=== PATIENT | male | born 1940 | race Caucasian/White ===

== ENCOUNTER 2021-03-18 06:56 | Day surgery (SDC) | payer MEDICARE ==
[2021-03-16 11:17] VITALS: BMI 31.2
[~2021-03-18 06:56] MED LIST: CLINDAMYCIN 600 MG in DEXTROSE 5% IN WATER 50 ML IVPB PRN; DEXAMETHASONE SOD PHOSPHATE 4 MG/ML 1 ML VIAL IV ONE; FAMOTIDINE 20 MG/2 ML VIAL IV PRN; LACTATED RINGERS 1,000 ML IV SCH; ONDANSETRON 4 MG/2 ML VIAL IVP ONE; ONDANSETRON 4 MG/2 ML VIAL IVP PRN; fentaNYL (PF) 50 MCG/ML 2 ML AMP IV PRN
[2021-03-18 08:08] VITALS: TEMP 97.3
[2021-03-18] MEDS ORDERED: LIDOCAINE 1% (10MG/ML) FOR IV START INTRADERMA ONE (08:15)
[2021-03-18 08:29] LABS: Glucose,Whole Blood 237 mg/dL (75-99)
[2021-03-18] MEDS ORDERED: fentaNYL (PF) 50 MCG/ML 2 ML AMP ONE (10:00)
[2021-03-18] MEDS ORDERED: HYDROmorphone (PF) 1 MG/ML ONE (10:00)
[2021-03-18] MEDS ORDERED: GLYCOPYRROLATE 0.2 MG/ML 2 ML VIAL ONE (10:00)
[2021-03-18] MEDS ORDERED: NEOSTIGMINE 1 MG/ML 10 ML VIAL ONE (10:00)
[2021-03-18] MEDS ORDERED: PHENYLEPHRINE-0.9% NACL SYG 1,000 MCG/10 ML SYRINGE ONE (10:00)
[2021-03-18] MEDS ORDERED: LIDOCAINE 1% INJ 10MG/ML (20 ML MDV) ONE (10:00)
[2021-03-18] MEDS ORDERED: ROCURONIUM 10 MG/ML (5 ML VIAL) IV ONE (10:00)
[2021-03-18] MEDS ORDERED: LIDOCAINE 1%-EPI 1:100,000 20 ML VIAL SQ ONE ×2 (10:29)
[2021-03-18] MEDS ORDERED: BACITRACIN ZINC 500 UNIT/GM OINT 28.4 GM TUBE TOPICAL ONE (11:53)
--- NOTE | 2021-03-18 12:23 | P.OP ---
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 Postoperative Diagnosis: Same Procedure(s) Performed: Wide excision of a right neck mass malignant with involvement of greater auricular nerve, parotid, right earlobe, etc. with reconstruction utilizing a full-thickness skin graft Anesthesia: ZAK Surgeon: Yovani Salgado Estimated Blood Loss (ml): 50 Pathology: other (Right neck mass) Condition: stable Disposition: PACU Indications for Procedure: Pt has a massive right neck, earlobe, carotid exophytic fungating mass. This been present for many years. He was asked to have this removed when it was smaller but he refused. He is requesting surgical removal. All risks, benefits, and alternative therapies were discussed. Consent was obtained and all questions were answered. Operative Findings: Deeply infiltrative right neck malignancy involving the parotid right ear and greater auricular nerve Description of Procedure: This patient was taken to the operative room and placed in the supine position. A general inhalation anesthetic was administered the patient by mask and subsequently intubated by the department of anesthesia with a functioning IV line in place. The patient was monitored throughout the entire case by the department of anesthesia. The right neck was sterilely prepped and draped in usual fashion and anesthetized with lidocaine 1% with epinephrine 1 100,010 minutes were allowed wait for full vasoconstrictive effects to take place. At this time this neck mass was excised with appropriate margins measuring 12 x 12 cm. Dissection was carried down to the parotid masseteric fascia and this cancer went through the parotid masseteric fascia involving the parotid gland. This was close to the facial nerve. We dissected this tumor off the facial nerve and the greater auricular nerve inferiorly was involved in the nerve had to be sacrificed. The earlobe was also involved on the right sided part of the earlobe was also removed. After all visible tumor was removed and sent for pathology we harvested the appropriate amount of skin from the right lower abdomen and closed the donor site with rapid Vicryl and a 2-0 PDS. We took the skin defatted the skin and cut the skin and placed as an overlay graft. A large bolster dressing was applied and the patient tolerated this well. Follow-up will be in the office in 1 week and the patient is to contact me if any problems should arise. We are awaiting the results of the pathology report and the family was told that post surgical radiation therapy may be needed.
[2021-03-18 13:03] LABS: Glucose,Whole Blood 199 mg/dL (75-99)
[2021-03-18 13:45] VITALS: BP 172/88; PULSE 82; RESP 18
== END 2021-03-18 14:45 | disposition home or self-care (01) ==
LOC: OR 06:56
PROVIDERS: ATTEND Otolaryngology
DX: C44.41 Basal cell carcinoma of skin of scalp and neck (principal); R22.1 Localized swelling, mass and lump, neck; E11.9 Type 2 diabetes mellitus without complications; F41.9 Anxiety disorder, unspecified; K21.9 Gastro-esophageal reflux disease without esophagitis; G20 Parkinson's disease; N18.9 Chronic kidney disease, unspecified
CPT/HCPCS: 11420; 88305; J1100; J2710; J2405; J2001; J3010; J1170; J2370

== ENCOUNTER 2021-05-06 10:02 | Day surgery (SDC) | payer MEDICARE ==
[2021-05-04 14:22] VITALS: BMI 31.2
[~2021-05-06 10:02] MED LIST changes: -DEXAMETHASONE SOD PHOSPHATE 4 MG/ML 1 ML VIAL IV ONE; +DEXAMETHASONE SOD PHOSPHATE 4 MG/ML 1 ML VIAL IV PRN; -LACTATED RINGERS 1,000 ML IV SCH; -ONDANSETRON 4 MG/2 ML VIAL IVP ONE; -fentaNYL (PF) 50 MCG/ML 2 ML AMP IV PRN
[2021-05-06] MEDS ORDERED: LIDOCAINE 1% (10MG/ML) FOR IV START INTRADERMA PRN (10:15)
[2021-05-06] MEDS ORDERED: HYDROmorphone 0.5 MG/0.5 ML SYRINGE IVP PRN (10:15)
[2021-05-06] MEDS ORDERED: ONDANSETRON 4 MG/2 ML VIAL IVP ONE (10:15)
[2021-05-06] MEDS ORDERED: LACTATED RINGERS 1,000 ML IV SCH (10:15)
[2021-05-06] MEDS ORDERED: DEXAMETHASONE SOD PHOSPHATE 4 MG/ML 1 ML VIAL IV ONE (10:15)
[2021-05-06] MEDS ORDERED: MIDAZOLAM 2 MG/2 ML VIAL IV PRN (10:15)
[2021-05-06 10:43] LABS: Glucose,Whole Blood 144 mg/dL (75-99)
[2021-05-06] MEDS ORDERED: LIDOCAINE 1% INJ 10MG/ML (20 ML MDV) ONE (12:57)
[2021-05-06] MEDS ORDERED: PHENYLEPHRINE-0.9% NACL SYG 1,000 MCG/10 ML SYRINGE ONE (12:57)
[2021-05-06] MEDS ORDERED: fentaNYL (PF) 50 MCG/ML 2 ML AMP ONE (12:57)
[2021-05-06] MEDS ORDERED: SUCCINYLCHOLINE CHLORIDE 100 MG/5 ML SYR IV ONE (12:57)
[2021-05-06] MEDS ORDERED: ePHEDrine SULFATE/0.9% NACL/PF 50 MG/5 ML SYRINGE IV ONE (12:57)
[2021-05-06] MEDS ORDERED: PROPOFOL 10 MG/ML 20 ML VIAL IV ONE (12:57)
[2021-05-06] MEDS ORDERED: LIDOCAINE 1%-EPI 1:100,000 20 ML VIAL SQ ONE ×2 (13:33)
[2021-05-06] MEDS ORDERED: BUPIVACAINE (PF) 0.5% 30 ML VIAL SQ ONE ×2 (13:33)
[2021-05-06] MEDS ORDERED: BACITRACIN ZINC 500 UNIT/GM OINT 28.4 GM TUBE TOPICAL ONE ×2 (13:47)
--- NOTE | 2021-05-06 15:50 | P.OP ---
Date of Procedure: 05/06/21 Preoperative Diagnosis: 18 x 18 cm right neck malignancy 9 x 4 cm left posterior neck lesion Postoperative Diagnosis: Same Procedure(s) Performed: Excision of a 18 x 18 cm right neck malignancy with reconstruction utilizing a full-thickness skin graft donor site left abdomen. Excision of a 9 x 4 cm left posterior neck neoplasm with reconstruction utilizing a bilateral advancement flap closure with a secondary defect measuring 18 x 8 cm Anesthesia: GETA Surgeon: Yovani Salgado Estimated Blood Loss (ml): 20 Pathology: other (Right neck and left posterior neck lesions) Condition: stable Disposition: PACU Indications for Procedure: This patient had a very large infiltrative skin cancer of the right neck just below the earlobe. This was excised previously and the margins came back close along the deep margin and a wider resection was recommended. All risks, benefi ts, and alternative therapies were discussed in detail. Risks of bleeding, infection, facial nerve injury, permanent numbness etc. etc. were explained including risks of recurrence etc. patient understands the risk and wishes to proceed forward. In addition he has a lesion behind the left neck and a wider resection is also recommended. He was also explained the risks and a consent was obtained. Operative Findings: Patient underwent a wider resection of the right neck and left posterior neck and we utilized reconstruction techniques for both. Description of Procedure: This patient was taken to the operative room and placed in the supine position. A general inhalation anesthetic was administered the patient by mask and subsequently intubated with a LMA and the patient was monitored throughout the entire case by the department of anesthesia. The neck posteriorly and right side were sterilely prepped and draped in usual fashion along with a left lower abdomen. We first paid attention to the left posterior neck were a friable suspicious lesion was identified which measured 9 x 4 cm. We excised this with a 15 blade Buffalo plastic scissors and a Brown-Adson forceps and we did extensive undermining all directions. We raised superior and inferiorly based pedicle flaps and did extensive undermining we then rotated the flaps into position removing burrows triangles and close the deep dermal layers with use of 3-0 PDS and the skin was closed with a 50 rapid Vicryl in a running nonlocking fashion. The secondary defect measured 18 x 8 cm the primary defect measured 9 x 4 cm. Attention was then paid to the right neck which was also anesthetized with lidocaine and epinephrine an incision was made surrounding this area and this lesion was removed along with the old skin graft the was becoming on viable. We to the deeper layer because of the pathology report indicating a deeper resection was needed. Bleeding was controlled with pressure and we harvested skin from the left lower abdomen and close that in the usual fashion. We defatted the skin cut to size and placed it as an overlay graft on the right neck. A bolster dressing was applied in the usual fashion with multiple 50 rapid Vicryl's. Excellent results were obtained. The patient tolerated this well and follow-up will be in the office in 1 week. The patient is to contact me if any problems should arise in the interim.
[2021-05-06 15:58] VITALS: RESP 16; TEMP 97.8
[2021-05-06] MEDS: LABETALOL 5 MG/ML VIAL MDV IVP ONE ×4 (16:12→16:55)
[2021-05-06] MEDS ORDERED: LACTATED RINGERS 1,000 ML IV ONE (16:56)
[2021-05-06 18:48] VITALS: BP 146/83; PULSE 72
== END 2021-05-06 18:48 | disposition home or self-care (01) ==
LOC: OR 10:02
PROVIDERS: ATTEND Otolaryngology
DX: C44.40 Unspecified malignant neoplasm of skin of scalp and neck (principal); I49.9 Cardiac arrhythmia, unspecified; I10 Essential (primary) hypertension; E78.5 Hyperlipidemia, unspecified; E11.9 Type 2 diabetes mellitus without complications; K21.9 Gastro-esophageal reflux disease without esophagitis; Z79.899 Other long term (current) drug therapy
CPT/HCPCS: 14301; 14302; 15002; 15004; J1100; J2405; J2001; J2370; J0330; J2704

== ENCOUNTER 2021-08-21 14:12 | Emergency (ER) | payer MEDICARE ==
[2021-08-21 14:29] VITALS: RESP 18; TEMP 97.4
[2021-08-21 15:03] LABS: Albumin 3.1 g/dL (3.5-5.0); Calcium 7.8 mg/dL (8.4-10.2); Potassium 3.6 mmol/L (3.5-5.1); Total Bilirubin 0.6 mg/dL (0.2-1.3); Total Protein 6.5 g/dL (6.3-8.2)
[2021-08-21 15:06] LABS: Basophils % (A) 0 %; Eosinophils % (A) 0 %; HCT 35.1 % (39.0-53.0); HGB 11.1 gm/dL (13.0-17.5); Hypochromasia Slight; Lymphocytes # (A) 0.4 k/uL (1.0-4.8); Lymphocytes % (A) 13 %; MCH 27.9 pg (25.0-35.0); MCHC 31.7 g/dL (31.0-37.0); MCV 87.9 fL (80.0-100.0); Mean Platelet Volume 8.3; Monocytes # (A) 0.3 k/uL (0-1.0); Monocytes % (A) 8 %; Neutrophils # (A) 2.6 k/uL (1.3-7.7); Neutrophils % (A) 76 %; Platelet Count 187 k/uL (150-450); RDW 14.3 % (11.5-15.5); WBC 3.4 k/uL (3.8-10.6)
[2021-08-21] MEDS ORDERED: DEXTROSE 50% SYRINGE 50 ML IVP STA (15:09)
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
[2021-08-21 15:19] LABS: Glucose,Whole Blood 139 mg/dL (75-99)
[2021-08-21 15:28] LABS: Glucose,Whole Blood 100 mg/dL (75-99)
--- NOTE | 2021-08-21 16:18 | CT ---
EXAMINATION TYPE: CT brain wo con DATE OF EXAM: 08/21/2021 COMPARISON: None HISTORY: ams, weakness TECHNIQUE: CT scan of the head performed without contrast CT DLP: 1204.4 mGycm Automated exposure control for dose reduction was used. FINDINGS: Mildly degraded study due to artifact. No acute intracranial hemorrhage, midline shift or mass effect. There is prominence of the CSF spaces and ventricles. Mild patchy low-attenuation the deep white matter periventricular region. Scattered focal areas of low attenuation in the bilateral basal ganglia posterior limb of the right i nternal capsule. Acute orbital, osseous or soft tissue abnormalities seen. Paranasal sinuses and mastoid air cells are within normal limits. Atherosclerotic calcifications in the bilateral internal carotid arteries. IMPRESSION: 1. NO ACUTE INTRACRANIAL HEMORRHAGE, MIDLINE SHIFT OR MASS EFFECT. 2. FINDINGS OF BRAIN VOLUME LOSS AND CHRONIC MICROVASCULAR ISCHEMIC CHANGES.
[2021-08-21 16:24] LABS: Glucose,Whole Blood 86 mg/dL (75-99)
[2021-08-21 16:28] VITALS: BP 133/87; PULSE 62
--- NOTE | 2021-08-21 16:41 | XR ---
EXAMINATION TYPE: XR foot limited LT DATE OF EXAM: 08/21/2021 COMPARISON: NONE HISTORY: 80 years Male. STUDY INDICATION GIVEN: cellulitis . TECHNIQUE: AP and lateral radiographs of the foot IMPRESSION: There is generalized advanced osteopenia which limits evaluation for nondisplaced fracture and osteom yelitis. There is diffuse soft tissue swelling involving the distal lower extremity and the foot. There is a triangular-shaped osseous fragment at the base of the fifth tarsal, correlation with point tenderness recommended for acute fracture. There are osteoarthritic changes of the foot. No definite erosive or aggressive lesions are appreciated though early osteomyelitis is difficult to see on radiograph, clinical correlation is recommended. The need for an MRI to evaluate for osteomyel itis should be determined on clinical basis. There is a 2.0 cm oval-shaped soft tissue attenuation in the distal aspect of the posterior leg, this is located within the region of the Achilles tendon. Correlation with ultrasound or other imaging mo dality may be beneficial if clinically indicated. Peripheral vascular disease changes are noted.
--- NOTE | 2021-08-21 16:45 | XR ---
EXAMINATION TYPE: XR tibia fibula LT DATE OF EXAM: 08/21/2021 COMPARISON: NONE HISTORY: 80 years Male. STUDY INDICATION GIVEN: cellulitis . TECHNIQUE: Frontal and lateral radiographs of the left tibia and fibula IMPRESSION: There is generalized advanced osteopenia which limits evaluation for acute osteomyelitis and nondispl aced fracture. No acutely displaced fractures seen. There is a heterogeneous appearance of the bone marrow in the mid and distal tibia and mid and distal fibula which may be related to osteopenia though other infiltrative bone process cannot excluded. Co rrelation with lower extremity MRI may be beneficial. There is diffuse soft tissue swelling in the leg and included portion of the foot. 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 A cortical step-off is seen in the proximal lateral tibia correlation with history and point tenderne ss recommended for evaluation of acute fracture. Soft tissue density in the posterior aspect of the distal leg is again seen measuring 2.2 cm.
[2021-08-21 17:07] LABS: Glucose,Whole Blood 97 mg/dL (75-99)
== END 2021-08-21 19:15 | disposition home or self-care (01) ==
LOC: EC 14:12
DX: E11.649 Type 2 diabetes mellitus with hypoglycemia without coma (principal); I48.91 Unspecified atrial fibrillation; K21.9 Gastro-esophageal reflux disease without esophagitis; E78.5 Hyperlipidemia, unspecified; I10 Essential (primary) hypertension; F41.9 Anxiety disorder, unspecified; Z79.4 Long term (current) use of insulin; Z79.01 Long term (current) use of anticoagulants; Z88.0 Allergy status to penicillin; Z88.1 Allergy status to other antibiotic agents; Z85.828 Personal history of other malignant neoplasm of skin; Z90.49 Acquired absence of other specified parts of digestive tract
CPT/HCPCS: 36415; 70450; 80053; 83605; 83735; 85025; 87040; 87070; 87075; 87077; 87186; 87205; 93005; 99284

== ENCOUNTER 2021-09-25 14:56 | Inpatient (IN) | payer MEDICARE, OTHER ==
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
[2021-09-25] MEDS ORDERED: LINEZOLID 600 MG in DEXTROSE/WATER 1 300ML.BAG IVPB STA (15:45)
--- NOTE | 2021-09-25 16:14 | CT ---
EXAMINATION TYPE: CT brain wo con DATE OF EXAM: 09/25/2021 COMPARISON: 08/21/2021 HISTORY: AMS CT DLP: 1056.4 mGycm Automated exposure control for dose reduction was used. There is cerebral cortical atrophy. There is no mass effect or midline shift. There is no sign of int racranial hemorrhage. Calvarium is intact. The skull base is intact. IMPRESSION: Moderate cerebral atrophy. No change compared to old exam. No acute abnormality.
[2021-09-25 16:25] LABS: ALT 32 U/L (4-49); AST 37 U/L (17-59); African American GFR (CKD) >90 (>60 ml/min/1.73 sqM); Alcohol <10 mg/dL; Alkaline Phosphatase 164 U/L (38-126); Anion Gap 6 mmol/L; Blood Urea Nitrogen 35 mg/dL (9-20); Calcium 8.4 mg/dL (8.4-10.2); Carbon Dioxide 31 mmol/L (22-30); Chloride 98 mmol/L (98-107); Glucose 182 mg/dL (74-99); Magnesium 2.3 mg/dL (1.6-2.3); Non-African American GFR(CKD) 88 (>60 ml/min/1.73 sqM); Sodium 135 mmol/L (137-145); Total Bilirubin 0.5 mg/dL (0.2-1.3); Total Protein 6.3 g/dL (6.3-8.2)
[2021-09-25] MEDS ORDERED: INSULIN REGULAR 100 UNIT/ML VIAL (IV) IV STA (16:35)
[2021-09-25] MEDS ORDERED: SODIUM POLYSTYRENE SULFONATE 15 GM/60 ML BOTTLE PO STA (16:35)
[2021-09-25] MEDS ORDERED: SODIUM BICARB 8.4% 50 ML SYR (1 MEQ/ML) IV STA (16:36)
[2021-09-25] MEDS ORDERED: DEXTROSE 50% SYRINGE 50 ML IVP STA ×2 (16:36→16:37)
--- NOTE | 2021-09-25 16:42 | XR ---
EXAMINATION TYPE: XR chest 1V portable DATE OF EXAM: 09/25/2021 COMPARISON: 08/30/2021 HISTORY: Hypoxemia TECHNIQUE: Single view FINDINGS: There is blunting of the costophrenic angles. There is pulmonary vascular congestion. Heart is enlarged. There are chest leads. IMPRESSION: Congestive heart failure with increased pleural fluid and pulmonary congestion compared t o old exam.
--- NOTE | 2021-09-25 16:44 | XR ---
EXAMINATION TYPE: XR foot limited LT DATE OF EXAM: 09/25/2021 COMPARISON: 08/24/2021 HISTORY: Foot swelling TECHNIQUE: 2 views. There is significant soft tissue swelling of the foot and ankle. There is osteopenia. I see no defini te focal bone destruction. No fracture seen. IMPRESSION: Soft tissue swelling. No significant change compared to old exam.
--- NOTE | 2021-09-25 16:46 | XR ---
EXAMINATION TYPE: XR tibia fibula LT DATE OF EXAM: 09/25/2021 COMPARISON: NONE HISTORY: Chronic pain and swelling TECHNIQUE: 5 views FINDINGS: There is osteopenia. I see no definite fracture nor dislocation. There is diffuse subcutane ous edema around the lower leg. There is narrowing of the knee joint spaces. IMPRESSION: Subcutaneous edema. No fracture seen. Moderate osteopenia.
[2021-09-25] MEDS ORDERED: FUROSEMIDE 10 MG/ML 4 ML VIAL IV STA (17:04)
[2021-09-25 17:51] LABS: Partial Thromboplastin Time 29.7 sec (22.0-30.0); Prothrombin Time 10.8 sec (9.0-12.0)
[2021-09-25 18:23] LABS: Anisocytosis Slight; Basophils % (A) 0 %; Eosinophils # (A) 0.1 k/uL (0-0.7); Eosinophils % (A) 1 %; HCT 31.2 % (39.0-53.0); Hypochromasia Marked; Lymphocytes # (A) 0.8 k/uL (1.0-4.8); Lymphocytes % (A) 9 %; MCH 28.5 pg (25.0-35.0); MCHC 30.9 g/dL (31.0-37.0); MCV 92.2 fL (80.0-100.0); Monocytes # (A) 0.6 k/uL (0-1.0); Monocytes % (A) 7 %; Neutrophils # (A) 7.3 k/uL (1.3-7.7); Neutrophils % (A) 82 %; Platelet Count 155 k/uL (150-450); RBC 3.39 m/uL (4.30-5.90); WBC 8.9 k/uL (3.8-10.6)
[2021-09-25 18:28] LABS: HGB 9.6 gm/dL (13.0-17.5)
[2021-09-25] MEDS ORDERED: NALOXONE 0.4 MG/ML 1 ML VIAL IV PRN (18:48)
[2021-09-25] MEDS ORDERED: HYDROmorphone 1 MG/ML 1 ML SYRINGE IVP PRN (19:26)
[2021-09-25 19:40] LABS: Appearance,Urine Clear (Clear); Bacteria,Urine Rare /hpf; Bilirubin,Urine Negative (Negative); Blood,Urine Negative (Negative); Color,Urine Light Yellow; Glucose,Urine (UA) 2+ (Negative); Hyaline Casts,Urine 28 /lpf (0-2); Ketones,Urine Negative (Negative); Leukocyte Esterase,Urine Large (Negative); Mucus,Urine Rare /hpf; Nitrite,Urine Negative (Negative); Protein,Urine Negative (Negative); RBC,Urine 2 /hpf (0-5); Specific Gravity,Urine 1.009 (1.001-1.035); Squamous Epithelial Cell,Urine <1 /hpf (0-4); Urobilinogen,Urine <2.0 mg/dL (<2.0); WBC,Urine 12 /hpf (0-5)
[2021-09-25 19:52] LABS: Amphetamine Screen,Urine Not Detected (NotDetected); Barbiturate Screen,Urine Not Detected (NotDetected); Benzodiazepines Screen,Urine Not Detected (NotDetected); Cocaine Screen,Urine Not Detected (NotDetected); Methadone Screen, Urine Not Detected (NotDetected); Opiate Screen,Urine Detected (NotDetected); Oxycodone Screen, Urine Not Detected (NotDetected); Phencyclidine Screen,Urine Not Detected (NotDetected); Tricyclic Antidepressant,Urine Not Detected (NotDetected); Urn Cannabinoid Scrn Not Detected (NotDetected)
[2021-09-25] MEDS ORDERED: ATORVASTATIN 40 MG TAB PO SCH (21:00)
[2021-09-25] MEDS ORDERED: INSULIN DETEMIR (LEVEMIR) 100 UNIT/ML SYR SQ SCH (21:00)
[2021-09-25] MEDS ORDERED: CALCIUM CHLORIDE 100 MG/ML 10 ML SYRINGE IVP STA (21:42)
[2021-09-25 21:50] LABS: Glucose,Whole Blood 165 mg/dL (75-99)
[2021-09-25] MEDS: GABAPENTIN 100 MG CAP PO SCH (21:54)
[2021-09-25] MEDS: APIXABAN 5 MG TAB PO SCH (21:54)
[2021-09-25] MEDS: METOPROLOL TARTRATE 50 MG TAB PO SCH (21:55)
[2021-09-25] MEDS: LOSARTAN 25 MG TAB PO SCH (21:55)
[2021-09-25] MEDS: traZODone HCL 50 MG TAB PO SCH (21:56)
[2021-09-25] MEDS: LORazepam 0.5 MG TAB PO SCH (22:24)
[2021-09-25] MEDS ORDERED: LEVOFLOXACIN 750MG-D5W PMX 750 MG in DEXTROSE/WATER 1 150ML.BAG IVPB ONE (23:00)
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
[2021-09-26 02:22] LABS: Anisocytosis Slight; Basophils % (A) 0 %; Eosinophils # (A) 0.1 k/uL (0-0.7); Eosinophils % (A) 1 %; HCT 29.2 % (39.0-53.0); HGB 9.1 gm/dL (13.0-17.5); Hypochromasia Marked; Lymphocytes # (A) 0.7 k/uL (1.0-4.8); Lymphocytes % (A) 8 %; MCH 28.9 pg (25.0-35.0); MCHC 31.4 g/dL (31.0-37.0); MCV 92.1 fL (80.0-100.0); Mean Platelet Volume 8.9; Monocytes # (A) 0.5 k/uL (0-1.0); Monocytes % (A) 6 %; Neutrophils # (A) 6.4 k/uL (1.3-7.7); Neutrophils % (A) 83 %; Platelet Count 137 k/uL (150-450); RBC 3.17 m/uL (4.30-5.90); RDW 17.7 % (11.5-15.5); WBC 7.8 k/uL (3.8-10.6)
[2021-09-26 03:03] LABS: ALT 28 U/L (4-49); AST 55 U/L (17-59); African American GFR (CKD) >90 (>60 ml/min/1.73 sqM); Albumin 2.4 g/dL (3.5-5.0); Alkaline Phosphatase 122 U/L (38-126); Anion Gap 2 mmol/L; Blood Urea Nitrogen 37 mg/dL (9-20); Calcium 8.2 mg/dL (8.4-10.2); Carbon Dioxide 33 mmol/L (22-30); Chloride 97 mmol/L (98-107); Glucose 112 mg/dL (74-99); Non-African American GFR(CKD) 88 (>60 ml/min/1.73 sqM); Potassium 5.5 mmol/L (3.5-5.1); Sodium 132 mmol/L (137-145); Total Bilirubin 0.5 mg/dL (0.2-1.3); Total Protein 5.1 g/dL (6.3-8.2)
[2021-09-26] MEDS: metroNIDAZOLE-NS PMX 500 MG in SALINE 1 100ML.BAG IVPB SCH ×2 (04:49→13:16)
[2021-09-26] MEDS ORDERED: INSULIN ASPART (NovoLOG) 100 UNIT/ML VIAL SQ SCH (07:30)
[2021-09-26] MEDS: GABAPENTIN 100 MG CAP PO SCH (08:23)
[2021-09-26] MEDS: LORazepam 0.5 MG TAB PO SCH (08:24)
[2021-09-26] MEDS: METOPROLOL TARTRATE 50 MG TAB PO SCH (08:24)
[2021-09-26] MEDS: traZODone HCL 50 MG TAB PO SCH (08:24)
[2021-09-26] MEDS: LOSARTAN 25 MG TAB PO SCH (08:24)
[2021-09-26] MEDS: APIXABAN 5 MG TAB PO SCH (08:24)
[2021-09-26] MEDS ORDERED: SODIUM ZIRCONIUM CYCLOSILICATE 10 GM PACKET PO ONE (08:46)
[2021-09-26] MEDS ORDERED: FUROSEMIDE 40 MG TAB PO SCH (09:00)
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
[2021-09-26] MEDS ORDERED: DRY MOUTH SPRAY 44.3 SPRAY/44.3 ML SPRAY MUCOUS MEM PRN (12:15)
[2021-09-26] MEDS ORDERED: ONDANSETRON 4 MG/2 ML VIAL IVP PRN (12:15)
[2021-09-26] MEDS ORDERED: SCOPOLAMINE 1.5MG/72HR PATCH TRANSDERM PRN (12:15)
[2021-09-26] MEDS ORDERED: ACETAMINOPHEN SUPPOSITORY 650 MG SUPP RECTAL PRN (12:15)
[2021-09-26] MEDS ORDERED: ATROPINE OPHTH SOLN 1% 5ML BTL SUBLINGUAL PRN (12:15)
[2021-09-26] MEDS ORDERED: MORPHINE SULFATE 2 MG/ML SYRINGE IV PRN (12:15)
[2021-09-26] MEDS ORDERED: ARTIFICIAL TEARS-HYPROMELLOSE DROPS 15 ML BTL BOTH EYES PRN (12:15)
[2021-09-26] MEDS ORDERED: LORazepam 2 MG/ML INJ IV PRN (12:20)
[2021-09-26 13:46] VITALS: BP 98/46; PULSE 72; RESP 20; TEMP 97.7
--- NOTE | 2021-09-26 16:19 | P.DS ---
Providers Date of admission: 09/25/21 18:49 Expected date of discharge: 09/26/21 Attending physician: Marisol Gerardo DO Consults: 09/25/21 22:41 Consult Physician Urgent Consulting Provider: Luis Smith Reason/Comments: Borderline hypotension, left leg cellulitis, altered mental status, CHF Do you want consulting provider notified?: Already Contacted Primary care physician: Niraj Beebe MD Hospital Course: Discharge Diagnosis: Severe peripheral arterial disease with necrotic ulceration of the left toes and proximal cellulitis, extensive blistering Venous stasis dermatitis Probable urinary tract infection Decompensated diastolic congestive heart failure with ejection fraction 45-50% Pulmonary hypertension Hyperkalemia Atrial fibrillation Hypertension Dyslipidemia Diabetes mellitus Parkinson's disease Obesity with BMI 35.4 Anemia, undetermined etiology Thrombocytopenia Hyponatremia Severe protein calorie malnutrition Hospital Course: Patient is a 80-year-old male for history of Parkinson's, A. 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 In the ER he underwent an extensive evaluation. He was found to have some anemia, hyperkalemia with a potassium of 6 (was giving potassium lowering medications), labs were otherwise rather unremarkable. His Covid test remained positive. Covid in August 2021. Initially the family wanted the patient to be a DO NOT RESUSCITATE but started on some antibiotics. Over the night he worsen. They discussed this with pulmonary who recommended hospice. I again followed up with the family who agreed they wanted hospice. Hospice was contacted. We'll awaiting enrollment in hospice he was started on comfort medications. Patient was subsequently transitioned to [facility] hospice. Patient was discharged and at less then 48 hours from an inpatient status due to changes in family wishes for hospice care. Patient seen and examined at bedside. He is rather unresponsive initially but then opens his eyes. Denies pain but states he feels very tired. He closes his eyes and does not participate in the rest of the conversation. Vital signs reviewed and stable. General: non toxic, no distress, appears at stated age Derm: Left lower extremity with erythema and extensive blistering, extensive edema to the thigh of the leg, necrotic ulceration over the first second and third toes. Patient has a right AKA. His left leg feels cold. Head: atraumatic, normocephalic, symmetric Eyes: EOMI, no lid lag, anicteric sclera Mouth: no lip lesion, mucus membranes moist Cardiovascular: S1S2 reg, no murmur, positive posterior tibial pulse bilateral, Lungs: Coarse breath sounds bilaterally bilateral, no rhonchi, no rales , no accessory muscle use Abdominal: soft, nontender to palpation, no guarding, no appreciable organomegaly Ext: no gross muscle atrophy, no contractures Psych: Lethargic, oriented to self and awake A total of 37 minutes of time were spent preparing this complex discharge summary . Patient Condition at Discharge: Serious Plan - Discharge Summary New Discharge Prescriptions: No Action traZODone HCL 50 mg PO BID Omeprazole 20 mg PO DAILY LORazepam [Ativan] 0.5 mg PO BID Insulin Detemir [Levemir Flextouch Pen] 20 units SQ HS Baclofen [Lioresal] 20 mg PO HS Apixaban [Eliquis] 5 mg PO BID #60 tab Atorvastatin [Lipitor] 40 mg PO HS #30 tab Gabapentin [Neurontin] 100 mg PO TID #90 cap Metoprolol Tartrate [Lopressor] 50 mg PO BID #60 tab INSULIN ASPART (NovoLOG) [NovoLOG (formulary)] See Protocol SQ AC-BID Clotrimazole/Betameth Cream [Lotrisone] 1 applic TOPICAL BID Losartan [Cozaar] 25 mg PO BID HYDROcodone/APAP 5-325MG [[place] 5-325] 1 tab PO BID PRN PRN Reason: Phantom Pains Furosemide [Lasix] 40 mg PO DAILY Pyridoxine HCl (Vitamin B6) [Vitamin B-6] 100 mg PO DAILY Multivit-Min/FA/Lycopen/Lutein [Centrum Silver Tablet] 1 tab PO DAILY Ammonium Lactate Cream [Lac-Hydrin 12% Cream] 1 applic TOPICAL BID Morphine Sulfate ER [Ms Contin] 15 mg PO BID Cinnamon Bark [Cinnamon] 2,000 mg PO DAILY Cholecalciferol [Vitamin D3 (25 Mcg = 1000 Iu)] 50 mcg PO DAILY Discharge Medication List Baclofen [Lioresal] 20 mg PO HS 10/15/17 [History] Insulin Detemir [Levemir Flextouch Pen] 20 units SQ HS 10/15/17 [History] LORazepam [Ativan] 0.5 mg PO BID 10/15/17 [History] Omeprazole 20 mg PO DAILY 10/15/17 [History] traZODone HCL 50 mg PO BID 10/15/17 [History] Apixaban [Eliquis] 5 mg PO BID #60 tab 10/17/17 [Rx] Atorvastatin [Lipitor] 40 mg PO HS #30 tab 10/17/17 [Rx] Gabapentin [Neurontin] 100 mg PO TID #90 cap 10/17/17 [Rx] Metoprolol Tartrate [Lopressor] 50 mg PO BID #60 tab 10/17/17 [Rx] Clotrimazole/Betameth Cream [Lotrisone] 1 applic TOPICAL BID 03/16/21 [History] INSULIN ASPART (NovoLOG) [NovoLOG (formulary)] See Protocol SQ AC-BID 03/16/21 [History] Losartan [Cozaar] 25 mg PO BID 03/16/21 [History] Ammonium Lactate Cream [Lac-Hydrin 12% Cream] 1 applic TOPICAL BID 05/04/21 [History] HYDROcodone/APAP 5-325MG [[place] 5-325] 1 tab PO BID PRN 08/21/21 [History] Cholecalciferol [Vitamin D3 (25 Mcg = 1000 Iu)] 50 mcg PO DAILY 09/25/21 [History] Cinnamon Bark [Cinnamon] 2,000 mg PO DAILY 09/25/21 [History] Furosemide [Lasix] 40 mg PO DAILY 09/25/21 [History] Morphine Sulfate ER [Ms Contin] 15 mg PO BID 09/25/21 [History] Multivit-Min/FA/Lycopen/Lutein [Centrum Silver Tablet] 1 tab PO DAILY 09/25/21 [History] Pyridoxine HCl (Vitamin B6) [Vitamin B-6] 100 mg PO DAILY 09/25/21 [History] Follow up Appointment(s)/Referral(s): Niraj Beebe MD [Primary Care Provider] - 1-2 days Discharge Disposition: DISCH TO [facility]
--- NOTE | 2021-09-29 06:10 | CDI ---
Documentation Clarification Form Date: 09/29/21 From: Ella Morales Admit Date: 09/25/2021 06:49:00 PM Patient Name: Yovani Barkley Visit Number: [id number] Discharge Date: 09/26/2021 02:32:00 PM ATTENTION: The Clinical Documentation Specialists (CDI) and [facility] Coding Staff appreciate your assistance in clarifying documentation. Please respond to the clarification below the line at the bottom and electronically sign. The CDI & [facility] Coding staff will review the response and follow-up if needed. Please note: Queries are made part of the Legal Health Record. If you have any questions, please contact the author of this message via ITS. Dr. Marisol Gerardo, Sepsis is documented in Dr Smith's consult on 09/26, but is not noted in subsequent documentation. Clarification is requested. History/Risk Factors: Severe peripheral arterial disease with necrotic ulceration of the left toes and proximal cellulitis, extensive blistering, DM, acute on chronic diastolic CHF w HTN, Parkinson's, severe PCM, probable UTI Clinical Indicators: Suspected severe sepsis, secondary to cellulitis, of the left lower extremity, but hypotension secondary to sepsis. Mental status changes. BP 99/43 (09/25) 101/46, 87/55, 89/46, 101/40, 98/43,98/53, 75/41, 70/39, 82/41 etc WBC 8.9/7.8 Neutrophils 7.3/6.4 GLUCOSE 182 LACTIC ACID 1.0 TOTAL BILIRUBIN 0.5 Treatment: No pressors, DNR only comfort care Please clarify if the sepsis is: [ ] Sepsis confirmed, remains under treatment, POA [ ] Other condition, please specify [ ] Unable to determine [ X ] Sepsis ruled out MTDD
--- NOTE | 2021-09-29 06:21 | CDI ---
Documentation Clarification Form Date: 09/29/21 From: Ella Morales Admit Date: 09/25/2021 06:49:00 PM Patient Name: Yovani Barkley Visit Number: [id number] Discharge Date: 09/26/2021 02:32:00 PM ATTENTION: The Clinical Documentation Specialists (CDI) and [facility] Coding Staff appreciate your assistance in clarifying documentation. Please respond to the clarification below the line at the bottom and electronically sign. The CDI & [facility] Coding staff will review the response and follow-up if needed. Please note: Queries are made part of the Legal Health Record. If you have any questions, please contact the author of this message via ITS. Dr. Marisol Gerardo, Atrial Fibrillation is documented in ED Note, H&P & DS. Additional clarification regarding the type of atrial fibrillation is requested. History/Risk Factors: Severe peripheral arterial disease with necrotic ulceration of the left toes and proximal cellulitis, extensive blistering, DM, acute on chronic diastolic CHF w HTN, Parkinson's, severe PCM, probable UTI Clinical Indicators: Patient is on Eliquis anticoagulation therapy for atrial fibrillation. EKG/telemetry: Atrial fibrillation with slow ventricular response, ventricular rate of 46 bpm, normal QRS duration, normal QT interval, normal axis, no definite ST or T-wave abnormality Treatment: Eliquis 5 mg PO BID Please clarify the type of atrial fibrillation, if known: [ ] Permanent [ ] Paroxysmal [ ] Persistent [ ] Other, please specify [ ] Unable to determine [ X ] Chronic MTDD
== END 2021-09-26 14:32 | disposition hospice, inpatient (51) | DRG 299 ==
LOC: EC 14:56 → 3SCARD 18:49 → 2SICU 22:46 → 4SSUR 09-26 09:25 → 5NMEDONC 09-26 12:21 → 4SSUR 09-26 12:45
PROVIDERS: ADMIT Internal Medicine; ATTEND Internal Medicine
DX: E11.52 Type 2 diabetes mellitus with diabetic peripheral angiopathy with gangrene (principal); U07.1 COVID-19; I50.33 Acute on chronic diastolic (congestive) heart failure; E43 Unspecified severe protein-calorie malnutrition; L97.823 Non-pressure chronic ulcer of other part of left lower leg with necrosis of muscle; L03.116 Cellulitis of left lower limb; E87.1 Hypo-osmolality and hyponatremia; N39.0 Urinary tract infection, site not specified; I48.20 Chronic atrial fibrillation, unspecified; I27.20 Pulmonary hypertension, unspecified; T68.XXXA Hypothermia, initial encounter; D69.6 Thrombocytopenia, unspecified; I95.9 Hypotension, unspecified; L97.523 Non-pressure chronic ulcer of other part of left foot with necrosis of muscle; G54.6 Phantom limb syndrome with pain; G20 Parkinson's disease; Z89.611 Acquired absence of right leg above knee; I11.0 Hypertensive heart disease with heart failure; E11.621 Type 2 diabetes mellitus with foot ulcer; C44.41 Basal cell carcinoma of skin of scalp and neck; Z79.4 Long term (current) use of insulin; Z51.5 Encounter for palliative care; Z66 Do not resuscitate; D64.9 Anemia, unspecified; E87.5 Hyperkalemia; K21.9 Gastro-esophageal reflux disease without esophagitis; R09.02 Hypoxemia; E78.5 Hyperlipidemia, unspecified; F41.9 Anxiety disorder, unspecified; I87.2 Venous insufficiency (chronic) (peripheral); E66.9 Obesity, unspecified; Z68.35 Body mass index [BMI] 35.0-35.9, adult; N48.89 Other specified disorders of penis; Z79.01 Long term (current) use of anticoagulants; Z79.899 Other long term (current) drug therapy; Z86.19 Personal history of other infectious and parasitic diseases; Z87.440 Personal history of urinary (tract) infections; Z87.01 Personal history of pneumonia (recurrent); Z85.828 Personal history of other malignant neoplasm of skin; Z86.16 Personal history of COVID-19; Z98.890 Other specified postprocedural states; Z88.1 Allergy status to other antibiotic agents; Z88.5 Allergy status to narcotic agent; Z88.0 Allergy status to penicillin; Z88.8 Allergy status to other drugs, medicaments and biological substances; Z90.49 Acquired absence of other specified parts of digestive tract; Z83.3 Family history of diabetes mellitus
CPT/HCPCS: 36415; 70450; 71045; 80053; 80306; 80320; 81001; 82140; 82550; 83605; 83735; 83880; 84132; 84439; 84443; 84484; 85025; 85610; 85730; 87040; 87086; 87635; 93005; 96365; 96366; 96375; 99285

== ENCOUNTER 2021-09-26 14:16 | Inpatient (IN) | payer MEDICAID ==
[2021-09-26] MEDS ORDERED: HALOPERIDOL LACTATE 5 MG/ML 1 ML VIAL IM PRN (14:24)
[2021-09-26] MEDS ORDERED: ONDANSETRON 4 MG/2 ML VIAL IVP PRN (14:24)
[2021-09-26] MEDS ORDERED: GLYCOPYRROLATE 0.2 MG/ML 2 ML VIAL IVP PRN (14:24)
[2021-09-26] MEDS ORDERED: ACETAMINOPHEN SUPPOSITORY 650 MG SUPP RECTAL PRN (14:24)
[2021-09-26] MEDS ORDERED: MORPHINE SULFATE 4 MG/ML SYRINGE IV PRN (14:24)
[2021-09-26] MEDS ORDERED: SCOPOLAMINE 1.5MG/72HR PATCH TRANSDERM SCH (15:00)
[2021-09-26] MEDS: MORPHINE SULFATE (100 MG/2 ML) 100 MG in SODIUM CHLORIDE 0.9% 100 ML IV SCH (16:19)
[2021-09-26] MEDS: ATROPINE OPHTH SOLN 1% 5ML BTL SUBLINGUAL PRN (16:21)
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
[2021-09-27] MEDS: ATROPINE OPHTH SOLN 1% 5ML BTL SUBLINGUAL PRN ×2 (05:26→08:49)
[2021-09-27] MEDS: LORazepam 2 MG/ML INJ IV PRN ×2 (08:46→10:29)
[2021-09-27] MEDS: MORPHINE SULFATE (100 MG/2 ML) 100 MG in SODIUM CHLORIDE 0.9% 100 ML IV SCH (12:37)
--- NOTE | 2021-09-27 16:02 | P.PN ---
Subjective Progress Note Date: 09/27/21 pts intermittently agitated per nursing, but comfortable at the time of my evaluation. Nursing had given him prn ativan and increased morphine gtt. Family at bedside, questions answered, concerns addressed. Objective - Vital Signs Vital signs: Vital Signs Temp Pulse Resp 18 09/27/21 07:00 BP Pulse Ox Intake & Output 09/26/21 09/27/21 09/27/21 18:59 06:59 18:59 Intake Total 1.275 25.262 38.715 Output Total 1000 Balance 1.275 -974.738 38.715 Weight 118.5 kg Intake: Intake, IV Titration 1.275 25.262 38.715 Amount Morphine Sulfate (100 mg/ 1.275 25.262 38.715 2 ml) 100 mg In Sodium Chloride 0.9% 100 ml @ 1 MG/HR 1.02 mls/hr IV . Q24H [facility] Rx#:[id number] Output: Urine 1000 Other: Voiding Method Indwelling Catheter Indwelling Catheter # Voids 1 - Exam Gen: asleep, comfortable appearing HEENT: normocephalic, atraumatic, moist mucous membranes Resp: impaired air exchange, breathing comfortably with no accessory muscle use : wang catheter is present MSK: + pitting edema, R AKA, left necrotic wound of foot with surrounding erythema, no clubbing Assessment and Plan Assessment: Severe peripheral arterial disease with necrotic ulceration of the left toes and proximal cellulitis, extensive blistering Venous stasis dermatitis Probable urinary tract infection Decompensated diastolic congestive heart failure with ejection fraction 45-50% Pulmonary hypertension Hyperkalemia Atrial fibrillation Hypertension Dyslipidemia Diabetes mellitus Parkinson's disease Obesity with BMI 35.4 Anemia, undetermined etiology Thrombocytopenia Hyponatremia Severe protein calorie malnutrition Plan: Hospice care d/w hospice nurse: wang, morphine gtt, ativan and haldol as needed.
[2021-09-27 21:48] VITALS: RESP 10
[2021-09-28] MEDS: MORPHINE SULFATE (100 MG/2 ML) 100 MG in SODIUM CHLORIDE 0.9% 100 ML IV SCH ×2 (00:28→13:39)
[2021-09-28] MEDS: ATROPINE OPHTH SOLN 1% 5ML BTL SUBLINGUAL PRN (13:42)
--- NOTE | 2021-09-28 16:59 | P.DS ---
Providers Date of admission: 09/26/21 14:33 Expected date of discharge: 09/28/21 Attending physician: Marisol Gerardo DO Primary care physician: Niraj Beebe MD Hospital Course: Severe peripheral arterial disease with necrotic ulceration of the left toes and proximal cellulitis, extensive blistering Venous stasis dermatitis Probable urinary tract infection Decompensated diastolic congestive heart failure with ejection fraction 45-50% Pulmonary hypertension Hyperkalemia Atrial fibrillation Hypertension Dyslipidemia Diabetes mellitus Parkinson's disease Obesity with BMI 35.4 Anemia, undetermined etiology Thrombocytopenia Hyponatremia Severe protein calorie malnutrition Patient is a 80-year-old male for history of Parkinson's, A. 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 In the ER he underwent an extensive evaluation. He was found to have some anemia, hyperkalemia with a potassium of 6 (was giving potassium lowering medications), labs were otherwise rather unremarkable. His Covid test remained positive. Covid in August 2021. Initially the family wanted the patient to be a DO NOT RESUSCITATE but started on some antibiotics. Over the first night he worsened. Family wished for hospice care, and patient was subsequently admitted to [facility] hospice. Pt was tr eated with morphine gtt, ativan PRN, and haldol PRN, and on the evening of 09/28/2021, he peacefully with family in the room. Plan - Discharge Summary New Discharge Prescriptions: No Action traZODone HCL 50 mg PO BID Omeprazole 20 mg PO DAILY LORazepam [Ativan] 0.5 mg PO BID Insulin Detemir [Levemir Flextouch Pen] 20 units SQ HS Baclofen [Lioresal] 20 mg PO HS Apixaban [Eliquis] 5 mg PO BID #60 tab Atorvastatin [Lipitor] 40 mg PO HS #30 tab Gabapentin [Neurontin] 100 mg PO TID #90 cap Metoprolol Tartrate [Lopressor] 50 mg PO BID #60 tab INSULIN ASPART (NovoLOG) [NovoLOG (formulary)] See Protocol SQ AC-BID Clotrimazole/Betameth Cream [Lotrisone] 1 applic TOPICAL BID Losartan [Cozaar] 25 mg PO BID HYDROcodone/APAP 5-325MG [[place] 5-325] 1 tab PO BID PRN PRN Reason: Phantom Pains Furosemide [Lasix] 40 mg PO DAILY Pyridoxine HCl (Vitamin B6) [Vitamin B-6] 100 mg PO DAILY Multivit-Min/FA/Lycopen/Lutein [Centrum Silver Tablet] 1 tab PO DAILY Ammonium Lactate Cream [Lac-Hydrin 12% Cream] 1 applic TOPICAL BID Morphine Sulfate ER [Ms Contin] 15 mg PO BID Cinnamon Bark [Cinnamon] 2,000 mg PO DAILY Cholecalciferol [Vitamin D3 (25 Mcg = 1000 Iu)] 50 mcg PO DAILY Discharge Medication List Baclofen [Lioresal] 20 mg PO HS 10/15/17 [History] Insulin Detemir [Levemir Flextouch Pen] 20 units SQ HS 10/15/17 [History] LORazepam [Ativan] 0.5 mg PO BID 10/15/17 [History] Omeprazole 20 mg PO DAILY 10/15/17 [History] traZODone HCL 50 mg PO BID 10/15/17 [History] Apixaban [Eliquis] 5 mg PO BID #60 tab 10/17/17 [Rx] Atorvastatin [Lipitor] 40 mg PO HS #30 tab 10/17/17 [Rx] Gabapentin [Neurontin] 100 mg PO TID #90 cap 10/17/17 [Rx] Metoprolol Tartrate [Lopressor] 50 mg PO BID #60 tab 10/17/17 [Rx] Clotrimazole/Betameth Cream [Lotrisone] 1 applic TOPICAL BID 03/16/21 [History] INSULIN ASPART (NovoLOG) [NovoLOG (formulary)] See Protocol SQ AC-BID 03/16/21 [History] Losartan [Cozaar] 25 mg PO BID 03/16/21 [History] Ammonium Lactate Cream [Lac-Hydrin 12% Cream] 1 applic TOPICAL BID 05/04/21 [History] HYDROcodone/APAP 5-325MG [[place] 5-325] 1 tab PO BID PRN 08/21/21 [History] Cholecalciferol [Vitamin D3 (25 Mcg = 1000 Iu)] 50 mcg PO DAILY 09/25/21 [History] Cinnamon Bark [Cinnamon] 2,000 mg PO DAILY 09/25/21 [History] Furosemide [Lasix] 40 mg PO DAILY 09/25/21 [History] Morphine Sulfate ER [Ms Contin] 15 mg PO BID 09/25/21 [History] Multivit-Min/FA/Lycopen/Lutein [Centrum Silver Tablet] 1 tab PO DAILY 09/25/21 [History] Pyridoxine HCl (Vitamin B6) [Vitamin B-6] 100 mg PO DAILY 09/25/21 [History]
== END 2021-09-28 15:50 | disposition expired | DRG 951 ==
LOC: 4SSUR 14:33
PROVIDERS: ADMIT Internal Medicine; ATTEND Internal Medicine
DX: Z51.5 Encounter for palliative care (principal); I50.33 Acute on chronic diastolic (congestive) heart failure; E43 Unspecified severe protein-calorie malnutrition; I96 Gangrene, not elsewhere classified; E87.1 Hypo-osmolality and hyponatremia; N39.0 Urinary tract infection, site not specified; L03.116 Cellulitis of left lower limb; E11.52 Type 2 diabetes mellitus with diabetic peripheral angiopathy with gangrene; Z20.822 Contact with and (suspected) exposure to COVID-19; Z66 Do not resuscitate; L97.529 Non-pressure chronic ulcer of other part of left foot with unspecified severity; D69.6 Thrombocytopenia, unspecified; E11.621 Type 2 diabetes mellitus with foot ulcer; E66.9 Obesity, unspecified; E78.5 Hyperlipidemia, unspecified; E87.5 Hyperkalemia; E11.69 Type 2 diabetes mellitus with other specified complication; F41.9 Anxiety disorder, unspecified; G20 Parkinson's disease; I11.0 Hypertensive heart disease with heart failure; I27.20 Pulmonary hypertension, unspecified; I48.91 Unspecified atrial fibrillation; I87.2 Venous insufficiency (chronic) (peripheral); Z68.35 Body mass index [BMI] 35.0-35.9, adult; Z79.01 Long term (current) use of anticoagulants; Z79.4 Long term (current) use of insulin; Z79.899 Other long term (current) drug therapy; Z83.3 Family history of diabetes mellitus; Z85.828 Personal history of other malignant neoplasm of skin; Z86.16 Personal history of COVID-19; Z87.01 Personal history of pneumonia (recurrent); Z89.611 Acquired absence of right leg above knee; Z88.1 Allergy status to other antibiotic agents; Z88.0 Allergy status to penicillin; Z88.8 Allergy status to other drugs, medicaments and biological substances; Z88.5 Allergy status to narcotic agent